=== PATIENT | male | born 1975 | race Caucasian/White ===

== ENCOUNTER 2021-08-30 12:22 | Emergency (ER) | payer OTHER, SELFPAY ==
[2021-08-30 12:32] VITALS: BP 125/70; PULSE 86; RESP 18; TEMP 37.1; O2SAT 100
--- NOTE | 2021-08-30 12:36 | ED.EYEPROB ---
HPI - Eye Problem General Chief complaint: Eye Problems Stated complaint: fb right eye Time Seen by Provider: 08/30/21 12:37 Source: patient and RN notes reviewed History of Present Illness HPI Narrative: Patient is a 45-year-old male who presents the urgent care with complaints of possible foreign body to the right eye. Patient states that he lives with his girlfriend and she has several cats which sometimes the fine hair gets in his eyes . Patient states he noticed it this morning at 6 AM, waking him up from his sleep due to the pain. Patient does not sleep with his contacts but did wear his contacts to the facility and states that it made it feel better . Patient has flushed the eye several times and used allergy drops. Denies of any vision changes. No other acute complaints. No acute distress noted. Patient aware of the plan of care. Some parts of this dictation were generated by voice recognition software and may contain typographical and/or grammatical inaccuracies. Related Data Home Medications Medication Instructions Recorded Confirmed Pain Pump See Rx Instructions .ROUTE .COMPLEX 08/30/21 fenofibrate 54 mg PO DAILY 08/30/21 08/30/21 lisinopril 5 mg PO DAILY 08/30/21 08/30/21 meloxicam 15 mg PO DAILY 08/30/21 08/30/21 tizanidine See Rx Instructions .ROUTE 08/30/21 08/30/21 .COMPLEX PRN Allergies Allergy/AdvReac Type Severity Reaction Status Date / Time No Known Allergies Allergy Verified 08/30/21 12:55 Review of Systems Review of Systems: CONSTITUTIONAL: Denies fever, chills, or sweats. EYES: Denies visual changes, redness, or discharge. Reports a possible foreign body to the right eye with pain and irritation ENT: Denies rhinorrhea, congestion, sore throat, or otalgia. CARDIOVASCULAR: Denies chest pain, palpitations, or edema. RESPIRATORY: Denies cough or dyspnea. GASTROINTESTINAL: Denies abdominal pain, nausea, vomiting, or diarrhea. GENITOURINARY: Denies dysuria or hematuria. SKIN: Denies rash or itching. MUSCULOSKELETAL: Denies back pain, joint pain, or myalgia. NEUROLOGIC: Denies headache, numbness, or weakness. All other systems reviewed are negative, except as documented in HPI. PMFSH Comments At the time of my signature, I reviewed and agree with the nursing past medical, surgical, social, and family history. There is no relevant family history pertinent to the patient complaint. Exam Narrative: GENERAL: This is a well-nourished, well-developed patient, in no apparent distress. HEAD: normocephalic, atraumatic. EYES: PERRL. Sclera clear/white. Vision is grossly intact. Very mild conjunctiva noted to the right, no obvious foreign body EARS: External ears normal NOSE: External nose normal with no obvious nasal discharge, nares without redness, no rhinorrhea. THROAT: Mucous membranes moist, posterior pharynx clear. NECK: Neck supple SKIN: warm, intact with no suspicious lesions or rash, good texture and turgor. NEURO: awake, alert, and oriented to person, place and time. There were no obvious focal neurologic abnormalities. EXTREMITIES: No clubbing, cyanosis, or edema. Course Course Level of Care: Express Care Visit Vital Signs Vital signs: Vital Signs Temperature 98.7 F 08/30/21 12:32 Pulse Rate 86 08/30/21 12:32 Respiratory Rate 18 08/30/21 12:32 Blood Pressure 125/70 08/30/21 12:32 Pulse Oximetry 100 08/30/21 12:32 Temperature 98.7 F 08/30/21 12:32 Pulse Rate 86 08/30/21 12:32 Respiratory Rate 18 08/30/21 12:32 Blood Pressure 125/70 08/30/21 12:32 Pulse Oximetry 100 08/30/21 12:32 Reviewed Procedures FB Removal Eye Foreign Body #1: Location: eye (R) Topical anesthetic used: tetracaine Foreign body: other (No evidence of foreign body) Evidence of corneal penetration: No Technique: eye wash bottle and other (Bynum lamp) Procedure performed under: direct visualization with magnification Patient shabana
== END 2021-08-30 13:15 | disposition home or self-care (01) ==
PROVIDERS: Emergency Provider Nurse Practitioner Family; PCP Family Medicine
DX: H57.11 Ocular pain, right eye (principal); J44.9 Chronic obstructive pulmonary disease, unspecified; M41.9 Scoliosis, unspecified; Z86.16 Personal history of COVID-19
CPT/HCPCS: 99213; A9270; G0463